=== PATIENT | female | born 1930 | race Caucasian/White ===

== ENCOUNTER 2017-05-17 10:40 | Emergency (ER) | payer OTHER ==
[~2017-05-17] VITALS: Ht 167.6 cm; Wt 84.4 kg
[~2017-05-17 10:40] MED LIST: ALDACTONE25 MG PO; AMLODIPINE BESY10 MG PO; CATAPRES0.3 MG PO; CEFAZOLIN SODI500 MG PO; CINNAMON500 MG PO; CIPRO 250MG250 MG PO; CLONIDINE HYDR0.3 MG PO; CLOPIDOGREL75 M1 PO; COREG25 M1 PO; CRESTOR20 M2 PO; CRESTOR20 MG PO; CYMBALTA60 M1 PO; FENOFIBRIC ACI135 MG PO; FISH OIL CONC1000 MG PO; FUROSEMIDE20 MG PO; GABAPENTIN100 MG PO; LANTUS SOLOS100 U/ML; LEFLUNOMIDE20 MG PO; METOPROLOL SUCC50 MG PO; MINOXIDIL PO; MINOXIDIL2.5 M1 PO; NOVOLOG 10300 UNITS/ SC; ORENCIA125 MG/ML INJ; PANTOPRAZOLE SO40 M1 PO; SPIRONOLACTONE50 MG PO; TOVIAZ 4MG4 MG PO; TRAMADOL HYDROC50 MG PO; VICODIN7.5-300 PO; VITAMIN D1000 IU PO; ZOLPIDEM TARTRAT5 MG
[2017-05-17 10:49] VITALS: BP 152/64
--- NOTE | 2017-05-17 10:58 | ED MVC/FALL/TRAUMA COMPLAINT ---
History of Present Illness General Chief Complaint: Fall Stated Complaint: BIBA FOR FALL Source: patient, family, old records, EMS Exam Limitations: no limitations Vital Signs & Intake/Output Vital Signs & Intake/Output Vital Signs Date Time Temp Pulse Resp B/P B/P Pulse O2 O2 Flow FiO2 Mean Ox Delivery Rate 05/17 1230 98 Room Air 05/17 1049 98.0 68 18 152/64 95 Room Air Allergies Coded Allergies: RAMESH Inhibitors (Severe, ANAPHYLAXIS 05/17/17) celecoxib (From CELEBREX) (Severe, GI 05/17/17) enalapril (Severe, ANAPHYLAXIS 05/17/17) etanercept (Severe, HEPATITIS 05/17/17) Sulfa (Sulfonamide Antibiotics) (UNKNOWN 05/17/17) aspirin (UNKNOW 05/17/17) atorvastatin (MUSCLE CRAMPING 05/17/17) methotrexate (BECAME VERY ANEMIC 05/17/17) Triage Note: 86F BIBA FROM [facility] WHERE SHE REPORTS SHE WAS FEELING BILATERAL LEG WEAKNESS. SHE BENT FORWARD AND KNEES GAVE OUT WITH HIP FLEXION AND SHE FELL ON HER BOTTOM. DENIES HEADSTRIKE OR LOC. +THINNERS. DENIES ANY PERIODS OF CP/SOB/PALPITATIONS. REPORTS NEW LOW BACK TRANSVERSE MUSCULAR PAIN. TRACE BLE, ABLE TO LIFT LEGS INDEPENDENTLY STRENGTH INTACT. AAOX4 AND ABLE TO FOLLOW DIRECTIONS. NO FACIAL DROOP, SLURRED SPEECH, OR FOCAL NEURO DEFICITS OBSERVED. SENSATION INTACT. LIVES AT ASSISTED LIVING AND NORMALLY AMBULATORY INDEPENDENTLY. Triage Nurses Notes Reviewed? yes Onset: Just prior to arrival Duration: minute(s): (30) Timing: remote history Severity: mild Severity Numbers: 5 Injuries/Fall Location: back Method of Injury: fall Loss of Consciousness: no loss of consciousness Modifying Factors: Worsens With: movement, palpation. HPI: Patient is an 86-year-old female with history of rheumatoid arthritis, hypertension, CAD presenting to the emergency department with chief complaint of fall prior to arrival. She reports that she was at her weekly [employer] visit with her assisted-living facility, was pushing the carT and her legs got weak. She was bending over when this happened. She is trying to get something off of a shelf. She fell backwards landing on her back and her bottom. Denies history. No LOC. Denies any chest pain palpitations shortness of breath. No precipitating factors such as lightheadedness or dizziness. (Angelica Khan) Reconcile Medications Carvedilol (Coreg) 25 MG TABLET 1 TAB PO BID HEART (Reported) Clopidogrel Bisulfate (Clopidogrel) 75 MG TABLET 1 TAB PO DAILY BLOOD THINNER (Reported) Cyclosporine (Restasis) 0.05 % DROPERETTE 1 GTT OPH BID EYE (Reported) Duloxetine HCl (Cymbalta) 60 MG CAPSULE.DR 1 CAP PO DAILY NERVES (Reported) Fesoterodine Fumarate (Toviaz) 8 MG TAB.ER.24H 1 TAB PO DAILY BLADDER ( Reported) Minoxidil 2.5 MG TABLET 1 TAB PO DAILY UNKNOWN (Reported) Mirabegron (Myrbetriq) 25 MG TAB.ER.24H 1 TAB PO DAILY BLADDER (Reported) Pantoprazole Sodium 40 MG TABLET.DR 1 TAB PO BID GI (Reported) Rosuvastatin Calcium (Crestor) 20 MG TABLET 1 TAB PO DAILY CHOLESTEROL ( Reported) Spironolactone (Aldactone) 25 MG TABLET 1 TAB PO DAILY WATER RETENTION ( Reported) (Sissy MERCEDES,Pepe Pedro) Past History Travel History Traveled to [place] past 21 day No Medical History Any Pertinent Medical History? see below for history Neurological: NONE EENT: NONE Cardiovascular: CAD, hypertension, AORTIC VALVE REPLACEMENT HIGH CHOLESTEROL OPEN HEART SURGERY Respiratory: NONE Gastrointestinal: NONE Hepatic: NONE Renal: NONE Musculoskeletal: RHEUMATOID ARTHRITIS Psychiatric: NONE Endocrine: diabetes Blood Disorders: NONE Cancer(s): NONE ANGLE FURNACEMAN/Reproductive: NONE Surgical History Surgical History: bladder surgery Psychosocial History What is your primary language Citizen Of [place] Tobacco Use: Refused to answer Family History Hx Contributory? No (Angelica Khan) Review of Systems Review of Systems Constitutional: Reports: no symptoms. Comments Review of systems: See HPI, All other systems negative. Constitutional, no chills fever or weight loss HEENT: No visual changes no sore throat no congestion Cardiovascular: No chest pain ,palpitation , orthopnea or ankle swelling Skin, no jaundice no rashes Respiratory: No dyspnea cough sputum or hemoptysis GI: No nausea no vomiting : No dysuria No hematuria Muscle skeletal: no back pain, no neck pain, Neurologic: No numbness no confusion NO HEADACHES Psych: No stress anxiety or depression,. Heme/endocrine: No bruising no bleeding no polyuria or polydipsia Immunology: No splenectomy or history of AIDS (Angelica Khan) Physical Exam Physical Exam General Appearance: well developed/nourished, no apparent distress, alert, awake , comfortable Comments: Well-developed well-nourished person in no acute distress HEENT: extraocular motion intact, no nystagmus. Pupils equally round and reactive to light and accommodation. Nose is atraumatic. External auditory canal and Tympanic membranes clear. Pharynx normal. No swelling or edema. NO STEP OFF OR BOGGINESS ON SCALP. Neck: Supple, no lymphadenopathy, normal range of motion without pain or tenderness Back: TENDER TO PALPATION OVER LUMBAR SPINE, NEAR FULL ROM SOMEWHAT LIMITED DUE TO PAIN. NEG STRAIGHT LEG BILATERALLY. Cardiovascular: Regular rate and rhythms, able to auscultate a murmur on exam Respiratory: Chest nontender. No respiratory distress.breath sounds clear to auscultation bilaterally Abdomen: Soft, nontender nondistended, no appreciable organomegaly. Normal bowel sounds. No ascites, NO REBOUND OR GAURDING. Extremity: No edema, no calf tenderness to palpation, normal and equal pulses. Full range of motion of upper and lower extremities without difficulty or pain. No pain to palpation over bilateral hips. Neuro: Alert oriented x3, motor sensory normal, cranial nerves II through XII grossly intact. Patellar reflexes are 1+ bilaterally. Babinski reflexes intact bilaterally. Walks with steady gait using a walker. Skin: No appreciable rash on exposed skin, skin is warm and dry. Psych: Mood and affect is normal, memory and judgment is normal. Core Measures ACS in differential dx? Yes CVA/TIA Diagnosis No Sepsis Present: No Sepsis Focused Exam Completed? No (Zac KEITA,Angelica) Progress Differential Diagnosis: ELECTROLYTE ABNORMALITY, DEHYDRATION, CARDIAC ARRHYTHMIA , MUSCLE STRAIN, CONTUSION, COMPRESSION FRACTURE, MUSCLE WEAKNESS Plan of Care: Orders Procedure Date/time Status MISTAKE 05/17 1058 Active Telemetry/Siebel Architect 05/17 1058 Active TROPONIN LEVEL 05/17 105 Complete COMPREHENSIVE METABOLIC PANEL 05/17 1058 Complete CBC WITHOUT DIFFERENTIAL 05/17 105 Complete EKG 05/17 1058 Active Laboratory Tests 05/17/17 1104: Anion Gap 12, Estimated GFR 30 L, BUN/Creatinine Ratio 15.6, Glucose 161 H, Calcium 9.5, Total Bilirubin 0.5, AST 31, ALT 34, Alkaline Phosphatase 96, Troponin I < 0.01, Total Protein 6.9, Albumin 3.7, Globulin 3.2, Albumin/ Globulin Ratio 1.2, CBC w Diff NO MAN DIFF REQ, RBC 4.32, MCV 85.4, MCH 27.5, MCHC 32.2 L, RDW 15.6 H, MPV 8.0, Gran % 59.3, Lymphocytes % 28.3, Monocytes % 9.5 H, Eosinophils % 2.2, Basophils % 0.7, Absolute Granulocytes 2.8, Absolute Lymphocytes 1.3, Absolute Monocytes 0.4, Absolute Eosinophils 0.1, Absolute Basophils 0 Patient declined pain medication on arrival. Patient will for imaging. Likely mechanical fall. Patient reports that her muscles in her legs got weak and she fell onto her backside. She is neurologically intact, vascularly intact. 05/17/2017 3:15:06 PM patient and relates a steady gait using a walker. Patient informed of all imaging results and laboratory results. Renal function is essentially baseline. Patient did receive some IV hydration while in the emergency department. Discussed with Dr. NAVARRO, he agrees the patient can be safely discharged home and follow up outpatient. Patient nontoxic. Diagnostic Imaging: Viewed by Me: Radiology Read, CT Scan. Discussed w/RAD: Radiology Read, CT Scan. Radiology Impression: VPATIENT: MILTON MAN PRESENT AGE: 86 PATIENT ACCOUNT NO: [id number] : [birth year] LOCATION: [facility] ORDERING PHYSICIAN: Angelica KEITA SERVICE DATE: 05/17/17-1058 EXAM TYPE: CAT - CT LUMB SPINE WO IV CONTRAST EXAMINATION: CT LUMBAR SPINE WITHOUT CONTRAST CLINICAL INFORMATION: Pain after fall COMPARISON: MRI 01/30/2013 TECHNIQUE: Helical non-contrast CT images were obtained through the lumbar spine and 1.25 and 2.5 mm axial reconstructions were reviewed along with sagittal and coronal MPRs. DLP: 840.21 mGy-cm FINDINGS: No evidence of acute fracture. There is minimal grade 1 anterolisthesis of L4 on L5, unchanged from prior. Vertebral body heights are maintained. There is essentially complete loss of the T12-L1 disc space. There is mild narrowing of the L1-L2 disc space, moderate to severe narrowing of the L2-L3 disc space, and mild to moderate narrowing of the L3-L4 disc space. Degenerative disc disease is noted at L1-L2, L2-L3, L3-L4, and L4-L5 with vacuum disc phenomenon. There is multilevel facet arthropathy, most severe in the lower lumbar spine. Multilevel endplate osteophytes are also present. There is atherosclerotic calcification along the aorta and common iliac arteries. IMPRESSION: No evidence of acute fracture. Moderate to severe multilevel degenerative changes as described above. DICTATED BY: Rio Ulloa MD DATE/TIME DICTATED:05/17/171307 CANDY POLISHER:NAHID DATE/TIME TRANSCRIBED:05/17/171307 CONFIDENTIAL, DO NOT COPY WITHOUT APPROPRIATE AUTHORIZATION. <Electronically signed in Other Vendor System> SIGNED BY: Rio Ulloa MD 05/17/17 1320 Initial ED EKG: NSR (67 BPM) Prior EKG: unchanged (Angelica Khan) Departure Departure Time of Disposition: 1425 Disposition: HOME OR SELF CARE Condition: Stable Clinical Impression Primary Impression: Fall Secondary Impressions: Back pain Qualifiers: Back pain location: low back pain Chronicity: unspecified Back pain laterality: bilateral Sciatica presence: without sciatica Qualified Code: M54.5 - Low back pain Referrals: Keya Joshi MD (PCP/Family) Additional Instructions: Follow-up with a primary care physician in the next 5-7 days, call to make an appointment. Take [id number] Tylenol as directed for any aches or pains. Return for worsening symptoms or concerns. Departure Forms: Customer Survey General Discharge Information (Angelica Khan) PA/SIGHTSEEING GUIDE Co-Sign Statement Statement: ED Attending supervision documentation- [x] I saw and evaluated the patient. I have also reviewed all the pertinent lab results and diagnostic results. I agree with the findings and the plan of care as documented in the PA's/SIGHTSEEING GUIDE's documentation. Patient presents for evaluation of injury sustained status post fall. Physical examination reveals mild lower back pain and tenderness. [] I have reviewed the ED Record and agree with the PA's/SIGHTSEEING GUIDE's documentation. [] Additions or exceptions (if any) to the PAs/SIGHTSEEING GUIDE's note and plan are summarized below: [] (Sissy MERCEDES,Pepe Pedro)
[2017-05-17 11:15] LABS: ABSOLUTE BASOPHIL COUNT 0 /CUMM (0.0-0.2); ABSOLUTE EOSINOPHIL COUNT 0.1 /CUMM (0.0-0.7); ABSOLUTE GRANULOCYTE CT 2.8 /CUMM (1.4-6.5); ABSOLUTE LYMPH COUNT 1.3 /CUMM (1.2-3.4); ABSOLUTE MONOCYTE COUNT 0.4 /CUMM (0.10-0.60); BASOPHIL % 0.7 % (0.0-2.0); EOSINOPHIL % 2.2 % (0-5); GRANULOCYTE % 59.3 % (42.2-75.2); HEMATOCRIT 36.9 % (37-47); MEAN CORPUSCULAR HGB 27.5 PG (27.0-31.0); MEAN CORPUSCULAR HGB CONC 32.2 G/DL (33.0-37.0); MEAN CORPUSCULAR VOLUME 85.4 FL (81.0-99.0); PLATELET COUNT 129 /CUMM (130-400); RBC DISTRIBUTION WIDTH 15.6 % (11.5-14.5); RED BLOOD CELL CT 4.32 /CUMM (4.20-5.40); WHITE BLOOD CELL COUNT 4.7 /CUMM (4.8-10.8)
--- NOTE | 2017-05-17 12:08 | RADIOLOGY REPORT ---
EXAMINATION: XR PORTABLE CHEST CLINICAL INFORMATION: Fall, weakness COMPARISON: 11/14/2013 chest x-ray TECHNIQUE: Portable AP view of the chest was obtained. FINDINGS: The cardiomediastinal silhouette is normal. Median sternotomy wires are in place and seem to be intact. Atherosclerotic calcifications and tortuosity of the thoracic aorta noted. No pulmonary venous congestion. The lungs are clear. No sizable pleural effusion. No pneumothorax. Degenerative changes of shoulder joints noted. IMPRESSION: No acute cardiopulmonary findings.
--- NOTE | 2017-05-17 13:20 | CT SCAN REPORT ---
EXAMINATION: CT LUMBAR SPINE WITHOUT CONTRAST CLINICAL INFORMATION: Pain after fall COMPARISON: MRI 01/30/2013 TECHNIQUE: Helical non-contrast CT images were obtained through the lumbar spine and 1.25 and 2.5 mm axial reconstructions were reviewed along with sagittal and coronal MPRs. DLP: 840.21 mGy-cm FINDINGS: No evidence of acute fracture. There is minimal grade 1 anterolisthesis of L4 on L5, unchanged from prior. Vertebral body heights are maintained. There is essentially complete loss of the T12-L1 disc space. There is mild narrowing of the L1-L2 disc space, moderate to severe narrowing of the L2-L3 disc space, and mild to moderate narrowing of the L3-L4 disc space. Degenerative disc disease is noted at L1-L2, L2-L3, L3-L4, and L4-L5 with vacuum disc phenomenon. There is multilevel facet arthropathy, most severe in the lower lumbar spine. Multilevel endplate osteophytes are also present. There is atherosclerotic calcification along the aorta and common iliac arteries. IMPRESSION: No evidence of acute fracture. Moderate to severe multilevel degenerative changes as described above.
[2017-05-17] MEDS ORDERED: TOVIAZ8 M1 PO (15:14)
[2017-05-17] MEDS ORDERED: RESTASIS1 EACH OPH (15:17)
[2017-05-17] MEDS ORDERED: MYRBETRIQ25 M1 PO (15:18)
== END 2017-05-17 15:39 ==
LOC: ERH 10:40
PROVIDERS: Physician Assistant
DX: M54.5 Low back pain (principal)
CPT/HCPCS: 71045; 93005; 93010

== ENCOUNTER 2017-09-11 14:22 | Observation (INO) | payer OTHER ==
[~2017-09-11] VITALS: Ht 162.6 cm; Wt 83.0 kg
[~2017-09-11 14:22] MED LIST changes: +MYRBETRIQ25 M1 PO; +RESTASIS1 EACH OPH; +TOVIAZ8 M1 PO
[2017-09-11] MEDS ORDERED: VITAMIN D32000 UNI1 PO (14:44)
[2017-09-11] MEDS ORDERED: CLONIDINE HCL0.3 M1 PO (14:44)
[2017-09-11] MEDS ORDERED: FISH OIL 1,0001 EAC1 PO (14:45)
[2017-09-11] MEDS ORDERED: FUROSEMIDE20 M1 PO (14:46)
[2017-09-11] MEDS ORDERED: NOVOLOG FL100 UNIT/1 SC (14:47)
[2017-09-11] MEDS ORDERED: ARAVA20 M1 PO (14:47)
[2017-09-11] MEDS ORDERED: MIRALAX17 G1 PO (14:48)
[2017-09-11] MEDS ORDERED: TRAMADOL HCL50 M1 PO (14:49)
[2017-09-11] MEDS ORDERED: TRAZODONE HCL50 M1 PO (14:50)
--- NOTE | 2017-09-11 15:07 | ED AMS/SEIZURE/WEAK/DIZZY ---
See Addendum History of Present Illness General Chief Complaint: General Adult Stated Complaint: GENERALIZED WEAKNESS Source: patient, old records, EMS Exam Limitations: no limitations Vital Signs & Intake/Output Vital Signs & Intake/Output Vital Signs Date Time Temp Pulse Resp B/P B/P Pulse O2 O2 Flow FiO2 Mean Ox Delivery Rate 09/12 1619 67 119/56 08/ 1612 58 18 Room Air 08 1404 65 15 101/55 08/02 1311 66 204/114 08/02 1310 66 204/114 08/02 1255 70 18 209/114 98 Room Air 08/ 1156 96.1 84 18 180/78 97 Room Air 08/ 1004 96.9 80 18 176/79 96 Room Air / 0811 97.0 61 18 158/70 97 Room Air / 0605 96.1 59 16 123/58 97 Room Air / 0604 95 Room Air / 0404 96.1 66 16 132/76 97 Room Air / 0219 64 18 144/65 93 Room Air 09/12 0122 Room Air / 0013 62 18 172/74 Room Air 08 2222 60 18 172/73 95 Room Air 09/11 2018 Room Air 09/11 2017 61 18 157/78 Room Air 09/11 1827 Room Air ED Intake and Output 09/12 0000 09/11 1200 Intake Total 0 Output Total Balance 0 Intake, Oral 0 Patient 183 lb Weight Weight Reported by Patient Measurement Method Allergies Coded Allergies: RAMESH Inhibitors (Severe, ANAPHYLAXIS 05/17/17) celecoxib (From CELEBREX) (Severe, GI 05/17/17) enalapril (Severe, ANAPHYLAXIS 05/17/17) etanercept (Severe, HEPATITIS 05/17/17) Sulfa (Sulfonamide Antibiotics) (UNKNOWN 05/17/17) aspirin (UNKNOW 05/17/17) atorvastatin (MUSCLE CRAMPING 05/17/17) methotrexate (BECAME VERY ANEMIC 05/17/17) Reconcile Medications Carvedilol (Coreg) 25 MG TABLET 1 TAB PO BID HEART (Reported) Cholecalciferol (Vitamin D3) (Vitamin D3) 2,000 UNIT TABLET 1 TAB PO DAILY VITAMIN SUPPORT (Reported) Clonidine HCl 0.3 MG TABLET 1 TAB PO BID UNKNOWN (Reported) Clopidogrel Bisulfate (Clopidogrel) 75 MG TABLET 1 TAB PO DAILY BLOOD THINNER (Reported) Cyclosporine (Restasis) 0.05 % DROPERETTE 1 GTT OPH BID EYE (Reported) Duloxetine HCl (Cymbalta) 60 MG CAPSULE.DR 1 CAP PO DAILY NERVES (Reported) Fesoterodine Fumarate (Toviaz) 8 MG TAB.ER.24H 1 TAB PO DAILY BLADDER ( Reported) Furosemide 20 MG TABLET 1 TAB PO DAILY WATER RETENTION (Reported) Insulin Aspart, Recombinant (Novolog Flexpen) (Unknown Strength) INSULN.PEN ( Unknown Dose) SC TIDAC DIABETES (Reported) Leflunomide (Arava) 20 MG TABLET 1 TAB PO UNKNOWN (Reported) Minoxidil 2.5 MG TABLET 1 TAB PO DAILY UNKNOWN (Reported) Mirabegron (Myrbetriq) 25 MG TAB.ER.24H 1 TAB PO DAILY BLADDER (Reported) [place]-3 Fatty Acids/Fish Oil (Fish Oil 1,000 MG Softgel) 340 MG-1,000 MG CAPSULE 1 CAP PO TID SUPPLMENENT (Reported) Pantoprazole Sodium 40 MG TABLET.DR 1 TAB PO BID GI (Reported) Polyethylene Glycol 3350 (Miralax) 17 GRAM POWD.PACK 1 PAC PO DAILY CONSTIPATION (Reported) dissolve in water Rosuvastatin Calcium (Crestor) 20 MG TABLET 1 TAB PO DAILY CHOLESTEROL ( Reported) Spironolactone (Aldactone) 25 MG TABLET 1 TAB PO DAILY WATER RETENTION ( Reported) Tramadol HCl 50 MG TABLET 2 TAB PO BID PRN PAIN (Reported) Trazodone HCl 50 MG TABLET 1 TAB PO QPM SLEEP (Reported) Triage Note: PT COMING FROM AND ASSISTED LIVING FACILITY. PER EMS, STAFF STATED THAT SHE HAS NOT BEEN GOING TO THE [place] FOR THE PAST WEEK. PT STATED THAT SHE HAS BEEN EXPERIENCING GENERALIZED WEAKNESS FOR THE PAST WEEK. PT PRESENTS PALE AND DRY. EMS ALSO REPORTS BG TO BE 427. PT A&O COMPLAINING OF PAIN ALL OVER. Triage Nurses Notes Reviewed? yes HPI: Patient presents for evaluation of listlessness poor appetite and generalized weakness for about the past week. Patient states it's gotten so severe that she is unable to walk. Outside of arthritis pain "all over" patient specifically denies chest pain, dyspnea, abdominal pain, fever or cold symptoms (patient states that she felt hot 2 days ago but felt better after drinking water). (Sissy MERCEDES,Pepe Pedro) Past History Travel History Traveled to [place] past 21 day No Medical History Any Pertinent Medical History? see below for history Neurological: NONE EENT: NONE Cardiovascular: CAD, hypertension, AORTIC VALVE REPLACEMENT HIGH CHOLESTEROL OPEN HEART SURGERY Peripheral Artery Disease Coronary Atherosclerosis CABG Anemia Respiratory: NONE Gastrointestinal: GERD Hepatic: 1\\ Renal: NONE Musculoskeletal: RHEUMATOID ARTHRITIS Psychiatric: NONE Endocrine: diabetes Blood Disorders: NONE Cancer(s): Squamous Cell Carcinoma [employer] RIGGER/Reproductive: NONE Surgical History Surgical History: bladder surgery Psychosocial History What is your primary language Namibian Tobacco Use: Never used ETOH Use: denies use Illicit Drug Use: denies illicit drug use Family History Hx Contributory? No (Sissy MERCEDES,Pepe Pedro) Review of Systems Review of Systems Constitutional: Reports: see HPI. EENTM: Reports: no symptoms. Respiratory: Reports: no symptoms. Cardiovascular: Reports: no symptoms. GI: Reports: no symptoms. Genitourinary: Reports: no symptoms. Musculoskeletal: Reports: no symptoms. Skin: Reports: no symptoms. Neurological/Psychological: Reports: no symptoms. Hematologic/Endocrine: Reports: no symptoms. Immunologic/Allergic: Reports: no symptoms. All Other Systems: Reviewed and Negative (Sissy MERCEDES,Pepe Pedro) Physical Exam Physical Exam General Appearance: SEE BELOW Comments: Gen.: Well-nourished, well-developed, no acute respiratory distress. Head: Normocephalic, atraumatic. Eyes: Normal inspection bilaterally Ears: Normal inspection bilaterally Nose: Normal inspection Throat/mouth : Moist mucosa Neck: Supple, full range of motion, no goiter Heart: Regular rate and rhythm, soft systolic murmur Lungs: Clear to auscultation bilaterally with normal air entry Chest: Nontender Back: Normal range of motion Abdomen: Soft, nontender, nondistended, normal bowel sounds Extremities: Normal range of motion grossly, equal radial pulses, no cyanosis clubbing or edema Neurologic: Cranial nerves grossly intact, speech is dysarthric but otherwise appropriate, although patient answers questions readily her responses and vocal sandro are slow Skin: warm and dry, question of pallor Psychiatric: Calm, cooperative, no apparent delusions or hallucinations (Sissy MERCEDES,Pepe Pedro) Core Measures ACS in differential dx? No CVA/TIA Diagnosis No Sepsis Present: No Sepsis Focused Exam Completed? No (Jeffrey Iraheta MD) Progress Plan of Care: Orders Procedure Date/time Status Consistent Carbohydrate 2 09/12 B Active Discharge Patient 09/12 1127 Active Theraputic Activities 15 Min 09/12 UNK Complete PT EVAL LOW COMPLEX 20 MIN 09/12 UNK Complete PT Evaluate & Treat 09/[address] in observation 09/12 1819 Active Patient Data 09/12 1819 Active CASE MANAGEMENT CONSULT 09/12 1819 Active Intake & Output 09/11 1659 Active Current Medications Sig/Shweta Start time Last Medication Dose Stop Time Status Admin Trazodone HCl 50 MG QPM 09/12 2100 AC (Desyrel) Leflunomide 20 MG DAILY 09/12 1745 AC (Arava) Rosuvastatin Calcium 20 MG 5PM 09/12 1700 AC (Crestor) Tramadol HCl 100 MG BID PRN 09/12 1215 AC 09/12 (Ultram) 1558 Spironolactone 25 MG DAILY 09/12 1208 AC 09/12 (Aldactone) 1311 Duloxetine HCl 60 MG DAILY 09/12 1207 AC 09/12 (Cymbalta) 1311 Furosemide 20 MG DAILY 09/12 1207 AC (Lasix) Minoxidil 2.5 MG DAILY 09/12 1207 AC 09/12 (Minoxidil 2.5 MG 1311 Tab) Carvedilol 25 MG BID 09/12 1206 AC 09/12 (Coreg) 1311 Clonidine 0.3 MG BID 09/12 1206 AC 09/12 (Catapres) 1310 Clopidogrel Bisulfate 75 MG DAILY 09/12 1206 AC 09/12 (Plavix) 1311 Diagnostic Imaging: Discussed w/RAD: Radiology Read. CXR Impression: PATIENT: MILTON MAN PRESENT AGE : 86 PATIENT ACCOUNT NO: [id number] : [birth year] LOCATION: [facility] ORDERING PHYSICIAN: Pepe Sheehan MD SERVICE DATE: 09/11/17072 EXAM TYPE: RAD - XRY-PORTABLE CHEST XRAY EXAMINATION: XR PORTABLE CHEST CLINICAL INFORMATION: Weakness. COMPARISON: 05/17/2017 TECHNIQUE: Portable frontal view of the chest was obtained. FINDINGS: The lungs are well expanded. The retrocardiac region of the left lower lobe is suboptimally evaluated on this portable chest radiograph. No acute findings compared to 05/17/2017. Cardiac silhouette is mildly enlarged in this patient who is status post coronary artery bypass graft surgery. The sternotomy wires are intact. The pulmonary vascular pattern is normal. No pulmonary edema, overt consolidation or pleural effusion. There is atherosclerotic calcification of the aorta. Bones appear diffusely osteopenic. Chronic osteoarthritis of bilateral glenohumeral and acromioclavicular joints and chronic loss of acromiohumeral distance at each shoulder, indicative of rotator cuff tears. IMPRESSION: 1. No acute pulmonary findings compared to 05/17. 2. Mild cardiomegaly without pulmonary edema. DICTATED BY: Alejo Salmeron MD DATE/TIME DICTATED:09/11/171517 ACETALDEHYDE CONVERTER OPERATOR:NAHID DATE/TIME TRANSCRIBED:09/11/171517 CONFIDENTIAL, DO NOT COPY WITHOUT APPROPRIATE AUTHORIZATION. <Electronically signed in Other Vendor System> SIGNED BY: Alejo Salmeron MD 09/11/17 152 Initial ED EKG: NSR, nonspecific ST T wave chg Prior EKG: changed Comments: Patient denies chest pain shortness of breath or abdominal pain. Patient's EKG changes are of unclear nature at this time but her clinical presentation does not appear consistent with an acute coronary syndrome. 09/11/2017 7:07:38 PM patient signed out to Dr. Iraheta at shift pattern changer. (Sissy MERCEDES,Pepe Pedro) Differential Diagnosis: benign positional vertigo, CVA/stroke, dehydration, drug intoxication Hand-Off Endorsed To: Blu Ledezma MD Endorsed Time: 0700 Pending: consult (PT, case mgmt) (Esequiel MERCEDES,Jeffrey) Diagnostic Imaging: Viewed by Me: CT Scan. Discussed w/RAD: CT Scan. Radiology Impression: PATIENT: MILTON MAN PRESENT AGE: 86 PATIENT ACCOUNT NO: [id number] : [birth year] LOCATION: [facility] ORDERING PHYSICIAN: Blu Ledezma MD SERVICE DATE: 09/12/17 EXAM TYPE: CAT - CT HEAD WO IV CONTRAST EXAMINATION: CT HEAD WITHOUT CONTRAST CLINICAL INFORMATION: Weakness COMPARISON: 08/16/2014 TECHNIQUE: Contiguous axial imaging was performed from the skull base to vertex without intravenous administration of contrast. DLP: 625 mGy-cm FINDINGS: There is no evidence of acute intracranial hemorrhage or territorial infarction. No abnormal mass effect or midline shift is seen. Marie to white matter differentiation is well preserved. No extra-axial fluid collections are identified. The ventricles are normal in size. Subtle hypodense region is seen adjacent to the caudate nucleus on the left side, unchanged from prior which may reflect a subtle lacunar infarct. Mild bilateral periventricular low-attenuation in keeping with small vessel ischemic change. The osseous structures and soft tissues are normal. The mastoid air cells and visualized portions of the paranasal sinuses are well aerated. IMPRESSION: No acute intracranial pathology. DICTATED BY: Lan Hastings MD DATE/TIME DICTATED:09/12/17743 ACETALDEHYDE CONVERTER OPERATOR:NAHID DATE/TIME TRANSCRIBED:09/12/17743 CONFIDENTIAL, DO NOT COPY WITHOUT APPROPRIATE AUTHORIZATION. <Electronically signed in Other Vendor System> SIGNED BY: Lan Hastings MD 09/12/17 0752, PATIENT: MILTON MAN PRESENT AGE: 86 PATIENT ACCOUNT NO: [id number] : [birth year] LOCATION: [facility] ORDERING PHYSICIAN: Blu Ledezma MD SERVICE DATE: 09/12/17 EXAM TYPE: CAT - CT THOR SPINE WO IV CONTRAST EXAMINATION: CT THORACIC SPINE WITHOUT CONTRAST CLINICAL INFORMATION: Back pain COMPARISON: None TECHNIQUE: Noncontrast multidetector CT imaging examination of the thoracic (and lumbar) spine was performed. Axial images are presented at 0.625 mm and 2.5 mm slice thickness. DLP: 1776 mGy-cm (for CT exams of the thoracic and lumbar spine) FINDINGS: Within the examined lower cervical spine, there is degenerative disc disease of C5-C6, C6-C7 and C7-T1 as manifest by disc space narrowing and prominent anterior osteophyte formation. Minimal degenerative retrolisthesis of C6 on C7. There is 0.4 cm of degenerative anterolisthesis of C7 on T1. At C7-T1, there is facet osteoarthritis and svfgusbe-ou-blukop left-sided neural foraminal stenosis. Multilevel degenerative disc space narrowing, anterior osteophyte formation and facet arthropathy of the upper thoracic spine. There is 0.3 cm of degenerative anterolisthesis of T1 on T2. Otherwise, thoracic vertebra have normal alignment. No fractures within the anterior posterior elements. No lytic, destructive lesion or paraspinal soft tissue mass. At T7-T8, a prominent posterior disc-osteophyte complex eccentrically narrows the central spinal canal by approximately 40% of its AP dimension. Otherwise, thoracic spinal canal is normal in caliber. At T10-T11, there is minimal calcification of the posterior longitudinal ligament and/or posterior annulus. Incidental findings include hyvxigfu-ou-kffna sliding-type hiatal hernia, and atherosclerotic disease of coronary arteries and aorta. IMPRESSION: 1. No acute pathology within the degenerated thoracic spine. 2. Hgwe-jr-dctvjadg discovertebral degenerative changes of the upper thoracic spine. 3. Prominent posterior disc osteophyte complex at T7-T8 produces mild, eccentric narrowing of the central spinal canal at this level. 4. Degenerative disc disease of the partially visualized lower cervical spine with minimal retrolisthesis at C6-C7 and anterolisthesis at C7- T1. DICTATED BY: Alejo Salmeron MD DATE/TIME DICTATED:09/12/171438 ACETALDEHYDE CONVERTER OPERATOR:NAHID DATE/TIME TRANSCRIBED:09/12/171438 CONFIDENTIAL, DO NOT COPY WITHOUT APPROPRIATE AUTHORIZATION. <Electronically signed in Other Vendor System> SIGNED BY: Alejo Salmeron MD 09/12/17 1455, PATIENT: MILTON MAN PRESENT AGE: 86 PATIENT ACCOUNT NO: [id number] : [birth year] LOCATION: [facility] ORDERING PHYSICIAN: Blu Ledezma MD SERVICE DATE: 09/12/17 EXAM TYPE: CAT - CT LUMB SPINE WO IV CONTRAST EXAMINATION: CT LUMBAR SPINE WITHOUT CONTRAST CLINICAL INFORMATION: Back pain. Evaluate for fracture. COMPARISON: CT lumbar spine, 05/17/2017 TECHNIQUE: Noncontrast multidetector CT imaging examination of the lumbar spine was performed. Axial images are presented at 0.625 mm and 2.5 mm slice thickness. Coronal and sagittal reformatted images were reviewed. DLP: Please refer to the separately dictated CT thoracic spine report FINDINGS: No acute findings within the severely degenerated lumbar spine compared to 05/17/2017. 15 degrees of rotatory dextroscoliosis of the lumbar spine is measured from L2 to L4. No acute fractures within anterior or posterior elements. Again noted is 0.4 cm of grade 1 anterolisthesis of L4 on L5. Otherwise, lumbar vertebra have normal alignment. Degenerative disc disease is severe at T12-L1 and posterior disc osteophyte complex produces mild canal stenosis and severe right neural foraminal stenosis at this level. At L1-L2, there is degenerative disc disease with predominantly right-sided posterior disc osteophyte complex producing moderate right neural foraminal stenosis. Moderate left-sided facet osteoarthritis at this level. At L2-L3, there is severe degenerative disc disease, posterior disc osteophyte complex, predominantly left-sided facet hypertrophy and ligamentum flavum hypertrophy causing central canal stenosis and left worse than right neural foraminal stenosis. At L3-L4, there is degenerative disc disease, posterior disc osteophyte complex, ligamentum flavum hypertrophy and moderate facet arthropathy causing mild central canal stenosis. There is tiiq-ff-olfzbgwc right and severe left neural foraminal stenosis at this level. At L4-L5, facet osteoarthritis is severe. Ligamentum flavum hypertrophy and disc bulge produce multifactorial central canal stenosis. There is mild grade 1 anterolisthesis of L4 on L5. There is moderate left and severe right neural foraminal stenosis at this level. At L5 -S1, there is severe facet osteoarthritis and degenerative disc disease. No significant narrowing of the central spinal canal. There is at least moderate bilateral neural foraminal stenosis. 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 No evidence of sacral fracture. No paraspinal fluid collection or soft tissue mass. Atherosclerotic calcification of the abdominal aorta and iliac arteries without abdominal aorta aneurysm. No para-aortic lymphadenopathy or retroperitoneal hematoma. Diverticulosis of the partially visualized sigmoid colon without diverticulitis. Hvsasafm-wu-ktkqs sliding-type hiatal hernia. 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 Multilevel spinal canal and neural foraminal stenosis is identified. No acute fractures. DICTATED BY: Alejo Salmeron MD DATE/TIME DICTATED:09/12/171451 ACETALDEHYDE CONVERTER OPERATOR:NAHID DATE/TIME TRANSCRIBED:09/12/171451 CONFIDENTIAL, DO NOT COPY WITHOUT APPROPRIATE AUTHORIZATION. <Electronically signed in Other Vendor System> SIGNED BY: Alejo Salmeron MD 09/12/17 1362 Hand-Off Endorsed To: Jeffrey Iraheta MD Endorsed Time: 1899 Pending: other (REHAB) (Brisa MERCEDES,Blu Sosa) Departure Departure Referrals: Keya Joshi MD (PCP/Family) Departure Forms: Customer Survey General Discharge Information (Sissy MERCEDES,Pepe Pedro) Departure Condition: Stable Clinical Impression Primary Impression: Weakness Secondary Impressions: Gait instability PA/ER RN Co-Sign Statement Statement: ED Attending supervision documentation- x I saw and evaluated the patient. I have also reviewed all the pertinent lab results and diagnostic results. I agree with the findings and the plan of care as documented in the PA's/ER RN's documentation. [] I have reviewed the ED Record and agree with the PA's/ER RN's documentation. [] Additions or exceptions (if any) to the PAs/ER RN's note and plan are summarized below: [] (Jeffrey Iraheta MD) Departure Disposition: ACUTE REHAB FACILITY (Brisa MERCEDES,Blu Sosa) ED Attending Observation Initial Observation Note: I have seen and personally examined MILTON MAN on 09/11/17 at 1908. I agree with the current emergency department documentation. The disposition (admission or discharge) is uncertain at this time, she needs a period of observation for the following reason(s): Milton is too weak at this point to ambulate and is therefore unable to return home. Evaluation reveals possible urinary tract infection with signs of nephritis. I feel she requires gentle IV hydration to improve renal perfusion. In addition she should have repeat urinalysis and repeat BUN and creatinine to assess for improvement or worsening with treatment adjusted accordingly. Physical therapy evaluation should also be obtained to assess for patient's ability to return home safely. The ED Nurse caring for this patient has been personally informed as to what the patient is being observed for. (Sissy MERCEDES,Pepe Pedro) Initial Observation Note: I have seen and personally examined MILTON MAN on 09/12/17 at 0529. I agree with the current emergency department documentation. The disposition (admission or discharge) is uncertain at this time, she needs a period of observation for the following reason(s): The ED Nurse caring for this patient has been personally informed as to what the patient is being observed for. (Jeffrey Iraheta MD) Observation Discharge: I have reevaluated MILTON MAN on 09/12/17 at 1125. The patient is: (): Stable for discharge (): To be admitted to Nursing Floor (): To be placed in Observation on Nursing Floor ([X]): For transfer to other facility The patient was being observed for [profound weakness] As a result of that observation, I have determined [patient has been seen and evaluated by physical therapy and it is recommended that she go to short-term rehabilitation.]. (Brisa MERCEDES,Blu Sosa)
--- NOTE | 2017-09-11 15:26 | RADIOLOGY REPORT ---
EXAMINATION: XR PORTABLE CHEST CLINICAL INFORMATION: Weakness. COMPARISON: 05/17/2017 TECHNIQUE: Portable frontal view of the chest was obtained. FINDINGS: The lungs are well expanded. The retrocardiac region of the left lower lobe is suboptimally evaluated on this portable chest radiograph. No acute findings compared to 05/17/2017. Cardiac silhouette is mildly enlarged in this patient who is status post coronary artery bypass graft surgery. The sternotomy wires are intact. The pulmonary vascular pattern is normal. No pulmonary edema, overt consolidation or pleural effusion. There is atherosclerotic calcification of the aorta. Bones appear diffusely osteopenic. Chronic osteoarthritis of bilateral glenohumeral and acromioclavicular joints and chronic loss of acromiohumeral distance at each shoulder, indicative of rotator cuff tears. IMPRESSION: 1. No acute pulmonary findings compared to 05/17/2017. 2. Mild cardiomegaly without pulmonary edema.
[2017-09-11 15:33] LABS: ABSOLUTE BASOPHIL COUNT 0 /CUMM (0.0-0.2); ABSOLUTE EOSINOPHIL COUNT 0.1 /CUMM (0.0-0.7); ABSOLUTE GRANULOCYTE CT 3.7 /CUMM (1.4-6.5); ABSOLUTE LYMPH COUNT 1.8 /CUMM (1.2-3.4); ABSOLUTE MONOCYTE COUNT 0.5 /CUMM (0.10-0.60); BASOPHIL % 0.6 % (0.0-2.0); EOSINOPHIL % 2.4 % (0-5); GRANULOCYTE % 59.9 % (42.2-75.2); HEMATOCRIT 37.4 % (37-47); MEAN CORPUSCULAR HGB 28.1 PG (27.0-31.0); MEAN CORPUSCULAR HGB CONC 32.4 G/DL (33.0-37.0); MEAN CORPUSCULAR VOLUME 86.7 FL (81.0-99.0); MEAN PLATELET VOLUME 8.2 FL (7.4-10.4); PLATELET COUNT 141 /CUMM (130-400); RBC DISTRIBUTION WIDTH 15.2 % (11.5-14.5); RED BLOOD CELL CT 4.31 /CUMM (4.20-5.40); WHITE BLOOD CELL COUNT 6.2 /CUMM (4.8-10.8)
--- NOTE | 2017-09-12 07:52 | CT SCAN REPORT ---
EXAMINATION: CT HEAD WITHOUT CONTRAST CLINICAL INFORMATION: Weakness COMPARISON: 08/16/2014 TECHNIQUE: Contiguous axial imaging was performed from the skull base to vertex without intravenous administration of contrast. DLP: 625 mGy-cm FINDINGS: There is no evidence of acute intracranial hemorrhage or territorial infarction. No abnormal mass effect or midline shift is seen. Marie to white matter differentiation is well preserved. No extra-axial fluid collections are identified. The ventricles are normal in size. Subtle hypodense region is seen adjacent to the caudate nucleus on the left side, unchanged from prior which may reflect a subtle lacunar infarct. Mild bilateral periventricular low-attenuation in keeping with small vessel ischemic change. The osseous structures and soft tissues are normal. The mastoid air cells and visualized portions of the paranasal sinuses are well aerated. IMPRESSION: No acute intracranial pathology.
--- NOTE | 2017-09-12 14:55 | CT SCAN REPORT ---
EXAMINATION: CT THORACIC SPINE WITHOUT CONTRAST CLINICAL INFORMATION: Back pain COMPARISON: None TECHNIQUE: Noncontrast multidetector CT imaging examination of the thoracic (and lumbar) spine was performed. Axial images are presented at 0.625 mm and 2.5 mm slice thickness. DLP: 1776 mGy-cm (for CT exams of the thoracic and lumbar spine) FINDINGS: Within the examined lower cervical spine, there is degenerative disc disease of C5-C6, C6-C7 and C7-T1 as manifest by disc space narrowing and prominent anterior osteophyte formation. Minimal degenerative retrolisthesis of C6 on C7. There is 0.4 cm of degenerative anterolisthesis of C7 on T1. At C7-T1, there is facet osteoarthritis and ypgcjrwx-du-xtfrwq left-sided neural foraminal stenosis. Multilevel degenerative disc space narrowing, anterior osteophyte formation and facet arthropathy of the upper thoracic spine. There is 0.3 cm of degenerative anterolisthesis of T1 on T2. Otherwise, thoracic vertebra have normal alignment. No fractures within the anterior posterior elements. No lytic, destructive lesion or paraspinal soft tissue mass. At T7-T8, a prominent posterior disc-osteophyte complex eccentrically narrows the central spinal canal by approximately 40% of its AP dimension. Otherwise, thoracic spinal canal is normal in caliber. At T10-T11, there is minimal calcification of the posterior longitudinal ligament and/or posterior annulus. Incidental findings include ejdtfwez-lk-wrabh sliding-type hiatal hernia, and atherosclerotic disease of coronary arteries and aorta. IMPRESSION: 1. No acute pathology within the degenerated thoracic spine. 2. Qnfo-ug-avifvmpl discovertebral degenerative changes of the upper thoracic spine. 3. Prominent posterior disc osteophyte complex at T7-T8 produces mild, eccentric narrowing of the central spinal canal at this level. 4. Degenerative disc disease of the partially visualized lower cervical spine with minimal retrolisthesis at C6-C7 and anterolisthesis at C7-T1.
--- NOTE | 2017-09-12 15:08 | CT SCAN REPORT ---
EXAMINATION: CT LUMBAR SPINE WITHOUT CONTRAST CLINICAL INFORMATION: Back pain. Evaluate for fracture. COMPARISON: CT lumbar spine, 05/17/2017 TECHNIQUE: Noncontrast multidetector CT imaging examination of the lumbar spine was performed. Axial images are presented at 0.625 mm and 2.5 mm slice thickness. Coronal and sagittal reformatted images were reviewed. DLP: Please refer to the separately dictated CT thoracic spine report FINDINGS: No acute findings within the severely degenerated lumbar spine compared to 05/17/2017. 15 degrees of rotatory dextroscoliosis of the lumbar spine is measured from L2 to L4. No acute fractures within anterior or posterior elements. Again noted is 0.4 cm of grade 1 anterolisthesis of L4 on L5. Otherwise, lumbar vertebra have normal alignment. Degenerative disc disease is severe at T12-L1 and posterior disc osteophyte complex produces mild canal stenosis and severe right neural foraminal stenosis at this level. At L1-L2, there is degenerative disc disease with predominantly right-sided posterior disc osteophyte complex producing moderate right neural foraminal stenosis. Moderate left-sided facet osteoarthritis at this level. At L2-L3, there is severe degenerative disc disease, posterior disc osteophyte complex, predominantly left-sided facet hypertrophy and ligamentum flavum hypertrophy causing central canal stenosis and left worse than right neural foraminal stenosis. At L3-L4, there is degenerative disc disease, posterior disc osteophyte complex, ligamentum flavum hypertrophy and moderate facet arthropathy causing mild central canal stenosis. There is [id number] right and severe left neural foraminal stenosis at this level. At L4-L5, facet osteoarthritis is severe. Ligamentum flavum hypertrophy and disc bulge produce multifactorial central canal stenosis. There is mild grade 1 anterolisthesis of L4 on L5. There is moderate left and severe right neural foraminal stenosis at this level. At L5-S1, there is severe facet osteoarthritis and degenerative disc disease. No significant narrowing of the central spinal canal. There is at least moderate bilateral neural foraminal stenosis. 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 No evidence of sacral fracture. No paraspinal fluid collection or soft tissue mass. Atherosclerotic calcification of the abdominal aorta and iliac arteries without abdominal aorta aneurysm. No para-aortic lymphadenopathy or retroperitoneal hematoma. Diverticulosis of the partially visualized sigmoid colon without diverticulitis. [id number] sliding-type hiatal hernia. 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 Multilevel spinal canal and neural foraminal stenosis is identified. No acute fractures.
[2017-09-13 10:24] VITALS: BP 171/73
== END 2017-09-13 10:41 ==
LOC: ERH 14:22 → ERHI 18:20
PROVIDERS: Emergency Medicine
DX: R53.1 Weakness (principal); R26.9 Unspecified abnormalities of gait and mobility; I25.10 Atherosclerotic heart disease of native coronary artery without angina pectoris; I10 Essential (primary) hypertension; Z79.01 Long term (current) use of anticoagulants; Z95.2 Presence of prosthetic heart valve; K21.9 Gastro-esophageal reflux disease without esophagitis; M06.9 Rheumatoid arthritis, unspecified; E55.9 Vitamin D deficiency, unspecified; Z95.1 Presence of aortocoronary bypass graft; D64.9 Anemia, unspecified; E11.51 Type 2 diabetes mellitus with diabetic peripheral angiopathy without gangrene
CPT/HCPCS: 6090; 71045; 81001; 93005; 93010; 97161-GP; 97530-GP; G0378